=== PATIENT | male | born 2000 | race Caucasian/White ===

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

== ENCOUNTER 2022-07-30 23:52 | Emergency (ER) | payer BC, OTHER | END 2022-07-31 01:00 | disposition left against medical advice (07) | LOC: MW.ED 23:52 | DX: Z53.21 Procedure and treatment not carried out due to patient leaving prior to being seen by health care provider (principal) ==

== ENCOUNTER 2022-08-21 08:07 | Emergency (ER) | payer BC ==
[2022-08-21] MEDS ORDERED: Lactated Ringers 1,000 ML IV ONE (08:27)
[2022-08-21] MEDS ORDERED: Aspirin 81 MG Tab.Chew PO ONE (08:27)
[2022-08-21 08:56] LABS: POTASSIUM,K 3.3 mmol/L (3.5-5.1)
[2022-08-21 09:59] VITALS: BP 157/81; PULSE 73
== END 2022-08-21 10:00 | disposition home or self-care (01) ==
LOC: MW.ED 08:07
DX: R07.89 Other chest pain (principal); Z91.09 Other allergy status, other than to drugs and biological substances
CPT/HCPCS: 36415; 80053; 84443; 84484; 85025; 96360; 99285; A9270; J7120; 93010; 99283